=== PATIENT | female | born 1965 | race American Indian/Alaskan Native ===

== ENCOUNTER 2016-10-31 09:15 | Emergency (ER) | payer BC ==
[~2016-10-31] VITALS: Ht 167.6 cm; Wt 70.8 kg
== END 2016-10-31 10:06 | disposition home or self-care (01) ==
LOC: ED 09:15
DX: H10.9 Unspecified conjunctivitis (principal)
CPT/HCPCS: 99282

== ENCOUNTER 2016-11-10 19:21 | Outpatient (CLI) | payer BC ==
[2016-11-10] MEDS ORDERED: NOVOLOG SC (19:44)
[2016-11-10] MEDS ORDERED: GRALISE600 MG OR (19:45)
[2016-11-10] MEDS ORDERED: QUETIAPINE50 MG OR (19:45)
[2016-11-10] MEDS ORDERED: TYLENOL325 MG OR (19:46)
[2016-11-10] MEDS ORDERED: LOTREL1 CA4 PO (19:46)
[2016-11-10] MEDS ORDERED: VALSARTAN160 MG PO (19:47)
[2016-11-10] MEDS ORDERED: CARV3.12 PO (19:50)
[2016-11-10] MEDS ORDERED: PROMETHAZINE25 M1 RE (19:50)
== END 2016-11-10 19:31 | disposition short-term general hospital (02) ==
LOC: AMB 19:21
DX: R25.2 Cramp and spasm (principal)
CPT/HCPCS: A0425; A0427

== ENCOUNTER 2016-11-10 19:34 | Emergency (ER) | payer BC ==
[~2016-11-10] VITALS: Ht 162.6 cm; Wt 68.9 kg
[2016-11-10 19:32] VITALS: TEMP 98
[2016-11-10] MEDS ORDERED: NOVOLOG SC (19:44)
[2016-11-10] MEDS ORDERED: QUETIAPINE50 MG OR (19:45)
[2016-11-10] MEDS ORDERED: GRALISE600 MG OR (19:45)
[2016-11-10] MEDS ORDERED: LOTREL1 CA4 PO (19:46)
[2016-11-10] MEDS ORDERED: TYLENOL325 MG OR (19:46)
[2016-11-10] MEDS ORDERED: VALSARTAN160 MG PO (19:47)
[2016-11-10] MEDS ORDERED: CARV3.12 PO (19:50)
[2016-11-10] MEDS ORDERED: PROMETHAZINE25 M1 RE (19:50)
[2016-11-10 20:23] LABS: PLATELET COUNT 231 K/uL (152-353)
[2016-11-10 21:20] LABS: POTASSIUM 3.1 mmol/L (3.6-5.2); SODIUM 140 mmol/L (136-145)
[2016-11-10 22:21] VITALS: BP 163/94
== END 2016-11-10 22:21 | disposition home or self-care (01) ==
LOC: ED 19:34
PROVIDERS: Specialist
DX: R25.2 Cramp and spasm (principal); E87.6 Hypokalemia
CPT/HCPCS: 36415; 80053; 81000; 83735; 84100; 85027; 96365; 99284; J3475

== ENCOUNTER 2017-03-24 15:27 | Outpatient (CLI) | payer BC ==
[~2017-03-24 15:27] MED LIST: CARV3.12 PO; GRALISE600 MG OR; LOTREL1 CA4 PO; NOVOLOG SC; PROMETHAZINE25 M1 RE; QUETIAPINE50 MG OR; TYLENOL325 MG OR; VALSARTAN160 MG PO
== END 2017-03-24 19:11 | disposition home or self-care (01) ==
LOC: LABW 15:27
DX: R19.7 Diarrhea, unspecified (principal)
CPT/HCPCS: 82272; 87015; 87045; 87205; 87324; 87328; 87329; 87449; 87899

== ENCOUNTER 2017-09-01 08:59 | Outpatient (CLI) | payer OTHER | END 2017-09-01 22:14 | disposition home or self-care (01) | LOC: LAB 08:59 | DX: E86.0 Dehydration (principal); R19.7 Diarrhea, unspecified | CPT/HCPCS: 82272; 87015; 87045; 87205; 87324; 87328; 87329; 87449; 87899 ==

== ENCOUNTER 2017-10-06 13:27 | Outpatient (CLI) | payer OTHER | END 2017-10-06 19:35 | disposition home or self-care (01) | LOC: LAB 13:27 | DX: E86.0 Dehydration (principal); R19.7 Diarrhea, unspecified | CPT/HCPCS: 82272; 87015; 87045; 87205; 87324; 87328; 87329; 87449; 87899 ==

== ENCOUNTER 2017-11-12 07:36 | Outpatient (CLI) | payer OTHER ==
[2017-11-12 08:00] LABS: PLATELET COUNT 176 K/uL (152-353)
== END 2017-11-12 19:11 | disposition home or self-care (01) ==
LOC: LABW 07:36
PROVIDERS: Internal Medicine Gastroenterology
DX: R19.7 Diarrhea, unspecified (principal)
CPT/HCPCS: 36415; 80053; 85027

== ENCOUNTER 2018-05-31 15:08 | Outpatient (CLI) | payer OTHER | END 2018-05-31 22:48 | disposition home or self-care (01) | LOC: RAD 15:08 | DX: M89.8X9 Other specified disorders of bone, unspecified site (principal); R07.81 Pleurodynia ==

== ENCOUNTER 2018-06-04 08:30 | Outpatient (CLI) | payer OTHER | END 2018-06-04 19:24 | disposition home or self-care (01) | LOC: MAMMO 08:30 | DX: R07.89 Other chest pain (principal); R22.2 Localized swelling, mass and lump, trunk; N63.10 Unspecified lump in the right breast, unspecified quadrant ==

== ENCOUNTER 2018-06-07 09:36 | Outpatient (CLI) | payer OTHER ==
[2018-06-07 10:59] LABS: POTASSIUM 4.7 mmol/L (3.6-5.2)
== END 2018-06-07 20:29 | disposition home or self-care (01) ==
LOC: CT 09:36
PROVIDERS: Physician Assistant
DX: R07.89 Other chest pain (principal); R22.2 Localized swelling, mass and lump, trunk; R22.9 Localized swelling, mass and lump, unspecified; R07.9 Chest pain, unspecified; R07.81 Pleurodynia
CPT/HCPCS: 36415; 80048; Q9963

== ENCOUNTER 2018-06-08 11:55 | Outpatient (CLI) | payer OTHER ==
[2018-06-08 12:21] LABS: PLATELET COUNT 188 K/uL (152-353)
[2018-06-08 12:52] LABS: POTASSIUM 4.2 mmol/L (3.6-5.2)
== END 2018-06-08 21:09 | disposition home or self-care (01) ==
LOC: LABW 11:55
PROVIDERS: Physician Assistant
DX: R22.2 Localized swelling, mass and lump, trunk (principal); R07.9 Chest pain, unspecified; R07.81 Pleurodynia; R63.4 Abnormal weight loss; Z79.899 Other long term (current) drug therapy; E55.9 Vitamin D deficiency, unspecified; R94.5 Abnormal results of liver function studies
CPT/HCPCS: 36415; 80053; 80061; 80074; 82306; 83036; 84439; 84443; 85027; 85651

== ENCOUNTER 2018-06-14 08:50 | Outpatient (CLI) | payer OTHER | END 2018-06-14 23:26 | disposition home or self-care (01) | LOC: US 08:50 | DX: R94.5 Abnormal results of liver function studies (principal) ==

== ENCOUNTER 2018-06-17 08:27 | Outpatient (CLI) | payer OTHER | END 2018-06-17 19:13 | disposition home or self-care (01) | LOC: NM 08:27 | DX: M94.0 Chondrocostal junction syndrome [Tietze] (principal) | CPT/HCPCS: A9561 ==

== ENCOUNTER 2018-06-18 07:43 | Outpatient (CLI) | payer OTHER ==
[2018-06-18 09:44] LABS: PLATELET COUNT 232 K/uL (152-353)
== END 2018-06-18 20:05 | disposition home or self-care (01) ==
LOC: LABW 07:43
PROVIDERS: Physician Assistant
DX: S22.31XG Fracture of one rib, right side, subsequent encounter for fracture with delayed healing (principal); R94.5 Abnormal results of liver function studies; K59.1 Functional diarrhea
CPT/HCPCS: 36415; 80074; 80076; 82103; 82150; 82390; 82525; 82728; 83516; 83540; 83550; 83690; 84165; 84166; 84466; 85027; 85610; 86038

== ENCOUNTER 2018-06-20 11:28 | Outpatient (CLI) | payer OTHER | END 2018-06-20 19:15 | disposition home or self-care (01) | LOC: LAB 11:28 | DX: R94.5 Abnormal results of liver function studies (principal); K59.1 Functional diarrhea | CPT/HCPCS: 82272; 83630; 87015; 87045; 87324; 87328; 87329; 87449; 87899 ==

== ENCOUNTER 2018-08-07 03:23 | Emergency (ER) | payer OTHER ==
[~2018-08-07] VITALS: Ht 162.6 cm; Wt 53.1 kg
[2018-08-07 03:30] VITALS: TEMP 97.7
[2018-08-07 03:59] LABS: PLATELET COUNT 310 K/uL (152-353)
[2018-08-07 04:44] LABS: POTASSIUM 5.3 mmol/L (3.6-5.2)
[2018-08-07 07:10] VITALS: BP 165/84
== END 2018-08-07 07:10 | disposition short-term general hospital (02) ==
LOC: ED 03:23
PROVIDERS: Student in an Organized Health Care Education/Training Program
PROC: 0T9B70Z Drainage of Bladder with Drainage Device, Via Natural or Artificial Opening (ICD-10-PCS; principal; 2018-08-07)
DX: E10.10 Type 1 diabetes mellitus with ketoacidosis without coma (principal); Z79.4 Long term (current) use of insulin; R00.0 Tachycardia, unspecified
CPT/HCPCS: 36415; 36600; 51702; 80053; 81000; 81025; 82805; 82947; 82962; 83605; 83735; 85027; 87077; 87086; 87088; 87186; 93005; 96365; 96366; 99285; J1815

== ENCOUNTER 2018-10-17 22:11 | Outpatient (CLI) | payer OTHER ==
[2018-10-18] MEDS ORDERED: OLMESARTAN MEDO20 MG PO (00:37)
[2018-10-18] MEDS ORDERED: AMLODIPINE BESYLATE PO (00:39)
== END 2018-10-17 22:22 | disposition short-term general hospital (02) ==
LOC: AMB 22:11
DX: R06.03 Acute respiratory distress (principal); R41.82 Altered mental status, unspecified; E10.11 Type 1 diabetes mellitus with ketoacidosis with coma
CPT/HCPCS: A0425; A0427

== ENCOUNTER 2018-10-17 22:27 | Emergency (ER) | payer OTHER ==
[~2018-10-17] VITALS: Ht 162.6 cm; Wt 53.1 kg
[2018-10-17 23:28] LABS: POTASSIUM 5.1 mmol/L (3.6-5.2); SODIUM 130 mmol/L (136-145)
[2018-10-17 23:38] LABS: PLATELET COUNT 336 K/uL (152-353)
[2018-10-18] MEDS ORDERED: OLMESARTAN MEDO20 MG PO (00:37)
[2018-10-18] MEDS ORDERED: AMLODIPINE BESYLATE PO (00:39)
[2018-10-18 02:00] VITALS: BP 93/44; TEMP 97.3
== END 2018-10-18 02:00 | disposition short-term general hospital (02) ==
LOC: ED 22:44
PROVIDERS: Hospitalist
PROC: 0BH17EZ Insertion of Endotracheal Airway into Trachea, Via Natural or Artificial Opening (ICD-10-PCS; principal; 2018-10-17)
PROC: 5A1935Z Respiratory Ventilation, Less than 24 Consecutive Hours (ICD-10-PCS; 2018-10-17)
PROC: 0T9B70Z Drainage of Bladder with Drainage Device, Via Natural or Artificial Opening (ICD-10-PCS; 2018-10-17)
PROC: 0JH Subcutaneous Tissue and Fascia, Insertion (ICD-10-PCS; 2018-10-17)
DX: E11.10 Type 2 diabetes mellitus with ketoacidosis without coma (principal); Z79.4 Long term (current) use of insulin; A41.9 Sepsis, unspecified organism; R06.03 Acute respiratory distress
CPT/HCPCS: 36415; 51702; 80053; 80307; 80320; 80329; 81000; 81002; 81025; 82550; 82805; 82947; 82962; 83605; 83880; 84484; 85027; 85610; 85730; 87040; 96361; 96365; 96366; 96368; 96375; 96376; 99285; J0330; J1815; J1956; J2060; J2704; J3490

== ENCOUNTER 2018-10-18 02:08 | Outpatient (CLI) | payer OTHER ==
[~2018-10-18 02:08] MED LIST changes: +AMLODIPINE BESYLATE PO; +OLMESARTAN MEDO20 MG PO
== END 2018-10-18 03:50 | disposition short-term general hospital (02) ==
LOC: AMB 02:08
DX: E11.65 Type 2 diabetes mellitus with hyperglycemia (principal)
CPT/HCPCS: A0425; A0427